=== PATIENT | female | born 1940 | race Caucasian/White ===

== ENCOUNTER → 2021-04-28 11:43 | Outpatient (CLI) | payer MEDICARE, SELFPAY | PROVIDERS: PCP Nurse Practitioner Primary Care; Referring Provider Nurse Practitioner Primary Care; Visit Provider Nurse Practitioner Primary Care | DX: J06.9 Acute upper respiratory infection, unspecified (principal); R05.8 Other specified cough | CPT/HCPCS: 36415; 86769 ==